=== PATIENT | female | born 1990 | race Caucasian/White ===

== ENCOUNTER 2017-01-29 10:35 | Observation (INO) | payer OTHER ==
[~2017-01-29] VITALS: Ht 162.6 cm; Wt 81.2 kg
[2017-01-29 11:43] VITALS: BP 104/67
== END 2017-01-29 13:30 | disposition home or self-care (01) ==
LOC: 4S 10:35
PROVIDERS: ADMIT Obstetrics & Gynecology; ATTEND Obstetrics & Gynecology
DX: O46.93 Antepartum hemorrhage, unspecified, third trimester (principal); O62.9 Abnormality of forces of labor, unspecified; O99.013 Anemia complicating pregnancy, third trimester; Z3A.38 38 weeks gestation of pregnancy
CPT/HCPCS: 59025; G0378

== ENCOUNTER 2017-02-02 05:19 | Inpatient (IN) | payer OTHER ==
[~2017-02-02] VITALS: Ht 162.6 cm; Wt 81.2 kg
[2017-02-02 05:40] VITALS: BP 111/55
[2017-02-02] MEDS ORDERED: RINGERS SOLUTION,LACTATED 1,000 ML IV PRN (05:54)
[2017-02-02] MEDS ORDERED: METOCLOPRAMIDE HCL 5 MG/ML 2 ML VIAL IVP PRN (06:00)
[2017-02-02] MEDS ORDERED: CITRIC ACID/SODIUM CITRATE 30 ML SOLUTION UDCUP PO PRN (06:00)
[2017-02-02 06:29] LABS: BASOPHILS % (AUTO) 0.1 % (0.0-2.0); EOSINOPHILS % (AUTO) 0.5 % (1.0-6.0); HEMATOCRIT 35.3 % (36-46); HEMOGLOBIN 11.5 g/dL (12.0-16.0); LYMPHOCYTES # (AUTO) 3.2 K/uL (1.0-4.8); LYMPHOCYTES % (AUTO) 31.2 % (22.0-44.0); MEAN CORPUSCULAR HEMOGLOBIN 28.7 pg (26.0-34.0); MEAN CORPUSCULAR HGB CONC 32.5 G/dL (31.0-37.0); MEAN CORPUSCULAR VOLUME 88 fL (80-100); MONOCYTES # (AUTO) 0.7 K/uL (0.1-1.0); MONOCYTES % (AUTO) 6.7 % (2.0-9.0); NEUTROPHILS # (AUTO) 6.4 K/uL (1.8-7.7); NEUTROPHILS % (AUTO) 61.5 % (40.0-70.0); WHITE BLOOD COUNT (AUTO) 10.4 K/uL (4.5-11.0)
[2017-02-02] MEDS: RINGERS SOLUTION,LACTATED 1,000 ML IV SCH ×2 (06:52→13:39)
[2017-02-02] MEDS: OXYGEN THERAPY IH SCH ×2 (08:00→20:00)
[2017-02-02] MEDS ORDERED: PREN1TAB80 PO (08:18)
[2017-02-02] MEDS ORDERED: AMPICILLIN SODIUM 2 GM/NS 100 ML IV ONE (08:30)
[2017-02-02] MEDS: MISOPROSTOL 25 MCG TABLET VG SCH ×2 (08:56→13:30)
[2017-02-02] MEDS: AMPICILLIN SODIUM 1 GM/NS 50 ML IV SCH ×3 (13:23→21:11)
[2017-02-02] MEDS: FentaNYL CITRATE-PF 100 MCG/2 ML VIAL IVP PRN (14:45)
[2017-02-02] MEDS ORDERED: LIDOCAINE HCL/PF 2% 5 ML VIAL ONE (16:40)
[2017-02-02] MEDS ORDERED: FentaNYL/BUPIV 0.125%/NS/PF 200 ML ED ONE (16:41)
[2017-02-02] MEDS ORDERED: FentaNYL/BUPIV 0.125%/NS/PF 200 ML ED PRN (17:02)
[2017-02-02] MEDS ORDERED: DiphenhydrAMINE HCL 50 MG/ML VIAL IVP PRN (17:15)
[2017-02-02] MEDS ORDERED: ONDANSETRON HCL 4 MG/2 ML VIAL IVP PRN (17:15)
[2017-02-02] MEDS ORDERED: PROMETHAZINE HCL 12.5 MG in SODIUM CHLORIDE 0.9% 50 ML IV PRN (17:15)
[2017-02-02] MEDS ORDERED: NALBUPHINE HCL 10 MG/ML VIAL IVP PRN (17:15)
[2017-02-02] MEDS ORDERED: OXYTOCIN 30 UNITS/LACT RINGERS 500 ML IV PRN (17:29)
[2017-02-02] MEDS ORDERED: OXYTOCIN 30 UNITS/LACT RINGERS 500 ML IV ONE (17:36)
[2017-02-03] MEDS ORDERED: LIDOCAINE HCL 2%/EPI 1:200,000/PF 10 ML VIAL ONE (01:03)
[2017-02-03] MEDS ORDERED: BUPIVACAINE HCL/PF 0.25% 10 ML VIAL ONE ×2 (01:04→20:23)
[2017-02-03] MEDS: RINGERS SOLUTION,LACTATED 1,000 ML IV SCH ×4 (01:17→12:45)
[2017-02-03] MEDS: AMPICILLIN SODIUM 1 GM/NS 50 ML IV SCH ×6 (01:28→21:41)
[2017-02-03] MEDS ORDERED: FentaNYL/BUPIV 0.125%/NS/PF 200 ML ED ONE ×2 (06:57→22:00)
[2017-02-03] MEDS: OXYGEN THERAPY IH SCH ×2 (08:00→21:41)
[2017-02-03] MEDS ORDERED: MAG HYDROX/AL HYDROX/SIMETH ES 30 ML SUSPENSION UDCUP PO ONE (08:30)
[2017-02-03] MEDS ORDERED: RANITIDINE HCL IV ONE (10:45)
[2017-02-03] MEDS ORDERED: DEXTROSE 5% IV ONE (10:45)
[2017-02-03] MEDS ORDERED: WATER IV ONE (10:45)
[2017-02-03] MEDS ORDERED: OXYTOCIN 10 UNITS/ML VIAL IM ONE (12:00)
[2017-02-03] MEDS ORDERED: EPHEDrine SULFATE 50 MG/ML VIAL IM ONE (12:00)
[2017-02-03] MEDS ORDERED: ONDANSETRON HCL 4 MG/2 ML VIAL IVP ONE (12:00)
[2017-02-03] MEDS ORDERED: PHENYLEPHRINE HCL 10 MG/ML VIAL IVP ONE (12:00)
[2017-02-03] MEDS ORDERED: LIDOCAINE HCL/PF 2% 5 ML VIAL ONE ×2 (14:32→20:23)
[2017-02-03] MEDS: FentaNYL CITRATE-PF 100 MCG/2 ML VIAL IVP PRN ×2 (17:00→17:05)
[2017-02-03] MEDS ORDERED: MORPHINE SULFATE/PF 0.5 MG/ML 10 ML AMP ONE (21:19)
[2017-02-03] MEDS ORDERED: FentaNYL CITRATE-PF 100 MCG/2 ML VIAL ONE (21:19)
[2017-02-03] MEDS ORDERED: SODIUM BICARBONATE 50 MEQ/50 ML VIAL ONE (21:20)
[2017-02-03] MEDS ORDERED: CeFAZolin 2 GM/DEXTROSE 50 ML IV ONE (21:38)
[2017-02-03] MEDS ORDERED: GUM MASTIC/STORAX/MSAL/ALCOHOL LIQUID 0.67 ML VIAL TP ONE (22:38)
[2017-02-03] MEDS ORDERED: KETAMINE HCL 50 MG/ML 10 ML VIAL ONE (23:01)
[2017-02-03] MEDS ORDERED: OXYTOCIN 30 UNITS/LACT RINGERS 500 ML IV ONE (23:21)
[2017-02-03] MEDS ORDERED: OxyCODONE HCL/ACETAMINOPHEN 5-325 MG TABLET PO PRN (23:30)
[2017-02-03] MEDS ORDERED: LANOLIN 7 GM OINTMENT TP PRN (23:30)
[2017-02-04] MEDS ORDERED: DiphenhydrAMINE HCL 50 MG/ML VIAL IM PRN
[2017-02-04] MEDS ORDERED: MEPERIDINE-PF 25 MG/ML SYRINGE IVP PRN
[2017-02-04] MEDS ORDERED: DEXAMETHASONE SOD PHOS 4 MG/ML VIAL IVP PRN
[2017-02-04] MEDS ORDERED: MORPHINE SULFATE 2 MG/ML SYRINGE IVP PRN ×2
[2017-02-04] MEDS ORDERED: NALBUPHINE HCL 10 MG/ML VIAL IVP PRN
[2017-02-04] MEDS ORDERED: MIDAZOLAM HCL 2 MG/2 ML VIAL IVP ONE
[2017-02-04] MEDS ORDERED: MORPHINE SULFATE 10 MG/ML SYRINGE IVP PRN
[2017-02-04] MEDS ORDERED: PROMETHAZINE HCL 12.5 MG in SODIUM CHLORIDE 0.9% 50 ML IV PRN ×2
[2017-02-04] MEDS ORDERED: FentaNYL CITRATE-PF 100 MCG/2 ML VIAL IVP PRN ×6 (00:15)
[2017-02-04] MEDS ORDERED: NALOXONE HCL 0.4 MG/ML VIAL IVP PRN (00:15)
[2017-02-04] MEDS ORDERED: DiphenhydrAMINE HCL 50 MG/ML VIAL IVP PRN ×2 (00:15)
[2017-02-04] MEDS ORDERED: ONDANSETRON HCL 4 MG/2 ML VIAL IVP PRN ×2 (00:15)
[2017-02-04] MEDS: RINGERS SOLUTION,LACTATED 1,000 ML IV SCH ×2 (00:26→08:23)
[2017-02-04] MEDS ORDERED: NALBUPHINE HCL 10 MG/ML VIAL IVP ONE (01:00)
[2017-02-04 06:24] LABS: BASOPHILS % (AUTO) 0.4 % (0.0-2.0); EOSINOPHILS % (AUTO) 0 % (1.0-6.0); HEMATOCRIT 26.6 % (36-46); HEMOGLOBIN 8.8 g/dL (12.0-16.0); LYMPHOCYTES # (AUTO) 2.6 K/uL (1.0-4.8); LYMPHOCYTES % (AUTO) 17.5 % (22.0-44.0); MEAN CORPUSCULAR HEMOGLOBIN 28.9 pg (26.0-34.0); MEAN CORPUSCULAR HGB CONC 32.9 G/dL (31.0-37.0); MEAN CORPUSCULAR VOLUME 88 fL (80-100); MONOCYTES # (AUTO) 1.1 K/uL (0.1-1.0); NEUTROPHILS # (AUTO) 11.2 K/uL (1.8-7.7); NEUTROPHILS % (AUTO) 75.1 % (40.0-70.0); RED BLOOD CELL COUNT(AUTO) 3.03 MIL/uL (4.00-5.20)
[2017-02-04] MEDS ORDERED: HYDROmorphone 2 MG/ML SYRINGE IVP PRN (07:30)
[2017-02-04] MEDS ORDERED: ACETAMINOPHEN 1000 MG/ISO-OSM 100 ML IV ONE (09:30)
[2017-02-04] MEDS: KETOROLAC TROMETHAMINE 30 MG/ML VIAL IVP PRN ×2 (13:12→18:59)
[2017-02-04] MEDS: NALBUPHINE HCL 10 MG/ML VIAL IVP SCH ×2 (16:20→22:52)
[2017-02-04] MEDS: MAGNESIUM HYDROXIDE SUSPENSION 30 ML UDCUP PO SCH (21:27)
[2017-02-05] MEDS: KETOROLAC TROMETHAMINE 30 MG/ML VIAL IVP PRN (00:28)
[2017-02-05] MEDS: OxyCODONE HCL/ACETAMINOPHEN 5-325 MG TABLET PO PRN ×2 (03:21→09:31)
[2017-02-05] MEDS: IBUPROFEN 800 MG TABLET PO PRN ×2 (06:18→14:13)
[2017-02-05] MEDS: MAGNESIUM HYDROXIDE SUSPENSION 30 ML UDCUP PO SCH (09:00)
[2017-02-05] MEDS ORDERED: PERCT PO (15:00)
[2017-02-05] MEDS ORDERED: IBUP-1547 PO (15:01)
[2017-02-05] MEDS ORDERED: DSS100 PO (15:01)
[2017-02-05] MEDS ORDERED: FERR-89 PO (15:02)
== END 2017-02-05 17:25 | disposition home or self-care (01) | DRG 540 ==
LOC: 4S 05:19 → PREOBSVTOIN 02-19 05:33
PROVIDERS: ADMIT Obstetrics & Gynecology; ATTEND Obstetrics & Gynecology
PROC: 10D00Z1 Extraction of Products of Conception, Low, Open Approach (ICD-10-PCS; principal; 2017-02-03)
PROC: 3E0P7GC Introduction of Other Therapeutic Substance into Female Reproductive, Via Natural or Artificial Opening (ICD-10-PCS; 2017-02-03)
PROC: 0UQC0ZZ Repair Cervix, Open Approach (ICD-10-PCS; 2017-02-03)
DX: O99.824 Streptococcus B carrier state complicating childbirth (principal); O32.4XX0 Maternal care for high head at term, not applicable or unspecified; O62.0 Primary inadequate contractions; O71.3 Obstetric laceration of cervix; Z3A.39 39 weeks gestation of pregnancy; Z37.0 Single live birth
CPT/HCPCS: 86850; 86900; 86901; J0131; J0290; J0690; J1170; J1885; J2274; J2300; J2370; J2405; J2590; J2765; J2780; J3010; J3490; J7060; J7120